=== PATIENT | female | born 1985 | race Caucasian/White ===

== ENCOUNTER 2016-12-01 18:30 | Inpatient (IN) | payer BC ==
[~2016-12-01] VITALS: Ht 167.6 cm; Wt 73.5 kg
--- NOTE | ~2016-12-01 | FD ---
ADMIT: 12/01/2016 RM/LOC: 227 [facility] MR#: [id number] [facility] [address] [place] [id number] LESLEY CORDON [address] [place] [address] [facility] [place] [address] Final Diagnosis SEX: F AGE: 31 : 1985 ADMISSION DATE: 12/01/2016 DISCHARGE DATE: 12/04/2016 FINAL DIAGNOSES: 1. Status post vacuum-assisted vaginal delivery. 2. Hypothyroidism. 3. Peripheral cord insertion. 4. Asthma. 5. Anemia, hemoglobin 8.1. PROCEDURES: 1. Vacuum-assisted vaginal delivery. 2. Bedside ultras for position. Kathryn Ladd MD/ devika JOB #: [id number] CC: Kathryn Ladd MD, Attending Physician Kathryn Ladd MD, Family Physician
[2016-12-04] MEDS ORDERED: SYNTHROID DPS0.05 MG PO (16:31)
[2016-12-04] MEDS ORDERED: MOTRIN-DPS800 MG PO (16:32)
[2016-12-04] MEDS ORDERED: SENOKOT DPS8.6 MG PO (16:32)
[2016-12-04] MEDS ORDERED: PRENATAL VIT1 TAB PO (16:32)
[2016-12-04] MEDS ORDERED: COLACE-DPS100 MG PO (16:32)
[2016-12-04] MEDS ORDERED: FEOSOL-DPS325 MG PO (16:32)
[2016-12-04] MEDS ORDERED: LAN-O-SOOTHE7 GM TP (16:33)
[2016-12-04] MEDS ORDERED: TYLENOL EXTRA500 MG PO (16:33)
--- NOTE | 2016-12-09 10:04 | OR ---
ADMIT: 12/01/2016 RM/LOC: 227 [facility] MR#: [id number] [address] [id number] LESLEY CORDON [address] [address] Operative/Delivery Room Report SEX: F AGE: 31 : 1985 SURGERY DATE: 12/02/2016 SURGEON: Kathryn Ladd MD PREOPERATIVE DIAGNOSES: 1. Intrauterine at 40 and 4/7th weeks gestation. 2. Arrest of descent. 3. Occiput posterior presentation. POSTOPERATIVE DIAGNOSES: 1. Intrauterine at 40 and 4/7th weeks gestation. 2. Arrest of descent. 3. Occiput posterior presentation. PROCEDURE: Vacuum-assisted vaginal delivery. ASSISTING: Dulce Argueta MD. ANESTHESIA: Epidural. ESTIMATED BLOOD LOSS: 300 mL. URINE OUTPUT: Minimal drained prior to procedure. CONDITION: Good. COMPLICATIONS: None. COUNTS: Correct x2. INDICATION FOR PROCEDURE: The patient is a 31-year-old, 2, para 0-0-1- 0 with an intrauterine at 40 and 4/7th weeks by embryo transfer date, who presented to Labor and Delivery for post EDC induction of labor. The patient's labor was induced with a Del Valle bulb for cervical ripening and Pitocin for augmentation. She progressed satisfactorily through labor and began to push at approximately 6 a.m. The patient pushed for 3 hours with arrest of descent at +2 station. Options provided to the patient were continued pushing, manual rotation of baby to occiput anterior presentation, vacuum-assisted vaginal delivery, or delivery. The risks, benefits, and alternatives to all these procedures were discussed with the patient, and the father of the baby, who expressed their understanding and decided to proceed with vacuum-assisted vaginal delivery. The risks of the procedure including scalp bruising and laceration, maternal tear, and cephalohematoma were discussed with the patient, who expressed her understanding and agreed to proceed. DESCRIPTION OF PROCEDURE: Due to the significant amount of caput, position was not able to be assessed on vaginal examination, so bedside ultrasound was performed, which revealed the fetus to be in occiput posterior ADMIT: 12/01/2016 RM/LOC: 227 [facility] MR#: [id number] [address] [address] [place] [address] Operative/Delivery Room Report SEX: F AGE: 31 : 1985 presentation. The bladder was drained with a red rubber catheter. The Kiwi hard cup vacuum was applied to the occiput and pumped into the green zone. Over the 1st contraction, there was minimal descent. With the 2nd contraction, the vacuum did pop off and the sponge inside the hard cup was noted to be soaked in blood and not in good condition. A new vacuum was obtained and applied. With the next contraction, there was good descent, however, the vacuum again popped off. Examination of the head which had began to crown showed the amniotic membrane overlying the occiput. The membrane was removed from the occiput and a new vacuum was obtained. On the next contraction, the fetus descended to . The vacuum was disengaged and the head allowed to deliver. A nuchal cord x1 was reduced. The remainder of the was delivered and the baby was then placed on the mother's abdomen. The delivery time was 09:36. The cord was then doubly clamped and cut. The was handed off to the awaiting nurse. Cord blood was sent. The infant's weight was 3570 g. scores were 6 and 8. A male fetus was identified. The placenta then delivered spontaneously intact with a three- vessel cord. Twenty units of Pitocin were infused with intravenous fluids. An examination of the perineum revealed a second-degree laceration, which was repaired with 3-0 Vicryl in the usual fashion with excellent hemostasis. Estimated blood loss for the entire procedure was 300 mL. The patient and infant are in her room in stable condition. The epidural catheter was removed intact without difficulty at the conclusion of the procedure. Kathryn Ladd MD/ kenyatta JOB #: [id number] CC: Kathryn Ladd, Attending Physician Kathryn Ladd, Family Physician
--- NOTE | 2016-12-11 18:06 | HP ---
ADMIT: 12/01/2016 RM/LOC: 227 [facility] MR#: [id number] [address] [facility] [address] [place] [id number] LESLEY CORDON [address] [place] [address] History and Physical SEX: F AGE: 31 : 1985 Corrected: 12/03/2016 0707 njv DATE OF SERVICE: 12/01/2016 CHIEF COMPLAINT: Induction of labor. HISTORY OF PRESENT ILLNESS: The patient is a 31-year-old G2, P0-0-1-0, with an intrauterine at 40 weeks 3 days estimated gestational age via embryo transfer date confirmed by ultrasound, who presented to the Labor and Delivery for post-EDC induction of labor on December 01, 2016. The patient denied contractions at the time of presentation. No leaking fluid or vaginal bleeding. She reported normal movement. is complicated by hypothyroidism; asthma, which is well controlled; peripheral insertion of umbilical cord into placenta; and an IVF . PAST MEDICAL HISTORY: Female infertility, asthma, endometriosis, and hypothyroidism. PAST SURGICAL HISTORY: Laparoscopy x 2 in 2012 for endometriosis. MEDICATIONS: 1. Ventolin HFA inhaler. 2. Synthroid 50 mcg daily. ALLERGIES: NO KNOWN MEDICAL ALLERGIES. SOCIAL HISTORY: She is to [place]. She denies alcohol use, recreational substances, or tobacco use. She lives in [place], [place]. FAMILY HISTORY: Her mother has the history of thyroid disease. LABORATORY DATA: GBS status is negative. Blood type is A positive with direct antigen test negative. Hemoglobin of 13.1 and platelets of 303. HIV negative. Gonorrhoea and chlamydia negative. Hepatitis B negative. RPR negative. Rubella immune. 1-hour glucose tolerance test is 113. REVIEW OF SYSTEMS: The patient denies change in vision, headache, shortness of breath, or chest pain. Denies swelling in bilateral lower extremities. No dysuria or vaginal discharge. PHYSICAL EXAMINATION: VITAL SIGNS: Blood pressure 118/72, pulse 80, respirations 16, and the patient is afebrile. GENERAL: The patient is alert and oriented x3, in no acute distress. HEART: Regular rate and rhythm. LUNGS: Clear to auscultation bilaterally. ABDOMEN: Gravid with an estimated weight of 3200 g. EXTREMITIES: No edema. ADMIT: 12/01/2016 RM/LOC: 227 [facility] MR#: [id number] [address] [address] [place] [address] History and Physical SEX: F AGE: 31 : 1985 GENITOURINARY: Sterile vaginal exam is /3. heart tones at the time of presentation with 140 baseline, Moderate variability. Positive for accelerations. No decelerations present. The patient was chandler every 2 minutes on tocometer at the time of presentation. Overall assessment of heart rate tracing with category I. ASSESSMENT AND PLAN: This is a 31-year-old G2, P0-0-1-0, with an intrauterine at 40 weeks 3 days by embryo transfer date, who presented to Labor and Delivery on 12/01/2016, for induction of labor for post date. 1. Induction of labor. The patient is chandler too frequently for placement of Cytotec for cervical ripening. Decision was made to proceed with Del Valle bulb placement for mechanical dilation. Pitocin was also initiated. Consents were obtained for vaginal delivery, operative vaginal delivery, and section. The patient also agreed to blood transfusion if needed. 2. CBC at the time of admission. 3. heart sounds reassuring, category I. 4. Hypothyroidism. We will continue home Synthroid. 5. GBS is negative. No need for antibiotic prophylaxis at this time. The patient was discussed and seen with the attending physician, Dr. Kathryn Ladd. Dulce Argueta MD Resident / Kathryn Ladd MD / kenyatta JOB #: [id number] CC: Kathryn Ladd, Attending Physician Kathryn Ladd, Family Physician Corrected: 12/03/2016 0707 nj
== END 2016-12-04 11:10 | disposition home or self-care (01) | DRG 775 ==
LOC: 2LDRP 18:30 → BC 18:30 → 2LDRP 19:07
PROVIDERS: ADMIT Obstetrics & Gynecology
PROC: 10907ZC Drainage of Amniotic Fluid, Therapeutic from Products of Conception, Via Natural or Artificial Opening (ICD-10-PCS; principal; 2016-12-02)
PROC: 0KQM0ZZ Repair Perineum Muscle, Open Approach (ICD-10-PCS; principal; 2016-12-02)
PROC: 10D07Z6 Extraction of Products of Conception, Vacuum, Via Natural or Artificial Opening (ICD-10-PCS; principal; 2016-12-02)
PROC: 0U7C7ZZ Dilation of Cervix, Via Natural or Artificial Opening (ICD-10-PCS; principal; 2016-12-02)
PROC: 3E0P7GC Introduction of Other Therapeutic Substance into Female Reproductive, Via Natural or Artificial Opening (ICD-10-PCS; principal; 2016-12-02)
DX: O48.0 Post-term pregnancy (principal); O64.0XX0 Obstructed labor due to incomplete rotation of fetal head, not applicable or unspecified; E03.9 Hypothyroidism, unspecified; O99.02 Anemia complicating childbirth; D64.9 Anemia, unspecified; O69.81X0 Labor and delivery complicated by cord around neck, without compression, not applicable or unspecified; O99.52 Diseases of the respiratory system complicating childbirth; J45.909 Unspecified asthma, uncomplicated; O43.123 Velamentous insertion of umbilical cord, third trimester; O75.89 Other specified complications of labor and delivery; N80.9 Endometriosis, unspecified; O99.284 Endocrine, nutritional and metabolic diseases complicating childbirth; O70.1 Second degree perineal laceration during delivery; Z3A.40 40 weeks gestation of pregnancy; Z37.0 Single live birth